=== PATIENT | female | born 1955 | race Caucasian/White ===

== ENCOUNTER 2017-04-13 22:58 | Observation (INO) | payer BC ==
[2017-04-14 00:13] LABS: ABS Basophils 0 10^3/ul (0-0.2); ABS Eosinophils 0.2 10^3/ul (0-0.6); ABS Lymphocytes 0.9 10^3/ul (1.0-4.8); ABS Monocytes 0.7 10^3/ul (0-0.8); ABS Neutrophils 6.2 10^3/ul (1.5-7.7); ABS Nucleated RBC 0 10^3/ul; Eosinophil % 2.2 % (0-6); Hematocrit 40 % (35-47); Hemoglobin 13.2 g/dl (12.0-16.0); Lymphocyte % 11.3 % (25-47); Mean Corpuscular HGB Conc 33 g/dl (31-36); Mean Corpuscular Hemoglobin 29 pg (27-31); Mean Corpuscular Volume 86 fL (80-97); Mean Platelet Volume 7 um3 (7.4-10.4); Nucleated Red Blood Cells % 0.1; Platelet Count 194 10^3/ul (150-450); Red Blood Count 4.64 10^6/ul (4.0-5.4); Red Cell Distribution Width 15 % (10.5-15)
[2017-04-14 00:32] LABS: EGFR Non-African American 71.4 (>60)
[2017-04-14 00:46] LABS: INR 4.15 (0.77-1.02)
[2017-04-14] MEDS ORDERED: Iohexol 350* (CONTRAST) 500 ML MDV IV ONE (03:07)
[2017-04-14] MEDS ORDERED: NS 0.9% 1000 ML* 1,000 ML IV ONE (03:32)
--- NOTE | 2017-04-14 05:04 | ED ---
Andry Brown Thomas, scribed for Lacho Bah on 04/14/17 at 0125 . Neurological HPI - HPI Summary HPI Summary: The patient is a 61 year old female brought by her family members to the emergency department with right-sided weakness that began three hours ago (22: 30 on 04/13/17). She has a history of stroke in 2016. At baseline, she has aphasia. The patient has right-sided weakness at baseline, but the patients family reports that her weakness is worse from baseline. She additionally complains of nasal congestion and a cough. - History of Current Complaint Chief Complaint: EDWeakness Stated Complaint: RT SIDE WEAKNESS/NAUSEA Time Seen by Provider: 04/14/17 00:54 Hx Obtained From: Patient Onset/Duration: Started hours ago - 3, Still Present Timing: Constant Current Severity: Moderate Pain Intensity: 0 Pain Scale Used: 0-10 Numeric Character: Other: - Weakness Aggravating: Nothing Alleviating: Nothing Related Hx: Coumadin - Allergy/Home Medications Allergies/Adverse Reactions: Allergies Allergy/AdvReac Type Severity Reaction Status Date / Time MS Ciprofloxacin Allergy Headache Verified 04/13/17 23:07 PMH/Surg Hx/FS Hx/Imm Hx Cardiovascular History: Denies: Hx Atrial Fibrillation Neurological History: Reports: Hx CVA Infectious Disease History: No Infectious Disease History: Denies: Traveled Outside the [place] in Last 30 Days - Family History Known Family History: Positive: Other - Stroke - Social History Alcohol Use: None Substance Use Type: Reports: None Smoking Status (MU): Never Smoked Tobacco Review of Systems Positive: Nasal Discharge Positive: Cough Neurological: Other - Aphasia, right-wided weakness All Other Systems Reviewed And Are Negative: Yes Physical Exam - Summary Physical Exam Summary: Appearance: Well appearing, no pain distress Skin: warm, dry, reflects adequate perfusion Head/face: normal Eyes: EOMI, ELIAS ENT: normal Neck: supple, non-tender Respiratory: CTA, breath sounds present Cardiovascular: RRR, pulses symmetrical Abdomen: non-tender, soft Bowel: present Musculoskeletal: normal, strength/ROM intact Neuro: sensory motor intact, A&Ox3. She has aphasia. Triage Information Reviewed: Yes Vital Signs On Initial Exam: Initial Vitals Temp Pulse Resp BP Pulse Ox 96.6 F 96 20 119/75 100 04/13/17 23:01 04/13/17 23:01 04/13/17 23:01 04/13/17 23:01 04/13/17 23:01 Vital Signs Reviewed: Yes Diagnostics - Vital Signs Vital Signs Temp Pulse Resp BP Pulse Ox 04/14/17 00:48 88 98 04/14/17 00:46 131/85 04/13/17 23:01 96.6 F 96 20 119/75 100 - Laboratory Lab Results: Lab Results 04/13/17 04/13/17 04/13/17 Range/Units 23:48 23:48 23:48 WBC 8.0 (3.5-10.8) 10^3/ul RBC 4.64 (4.0-5.4) 10^6/ul Hgb 13.2 (12.0-16.0) g/dl Hct 40 (35-47) % MCV 86 (80-97) fL MCH 29 (27-31) pg MCHC 33 (31-36) g/dl RDW 15 (10.5-15) % Plt Count 194 (150-450) 10^3/ul MPV 7 L (7.4-10.4) um3 Neut % (Auto) 76.8 (38-83) % Lymph % (Auto) 11.3 L (25-47) % [place] % (Auto) 9.3 H (1-9) % Eos % (Auto) 2.2 (0-6) % Baso % (Auto) 0.4 (0-2) % Absolute Neuts (auto) 6.2 (1.5-7.7) 10^3/ul Absolute Lymphs (auto) 0.9 L (1.0-4.8) 10^3/ul Absolute Monos (auto) 0.7 (0-0.8) 10^3/ul Absolute Eos (auto) 0.2 (0-0.6) 10^3/ul Absolute Basos (auto) 0 (0-0.2) 10^3/ul Absolute Nucleated RBC 0 10^3/ul Nucleated RBC % 0.1 INR (Anticoag Therapy) 4.15 H (0.77-1.02) APTT 40.5 H (26.0-36.3) seconds Sodium 137 (133-145) mmol/L Potassium 4.0 (3.5-5.0) mmol/L Chloride 101 (101-111) mmol/L Carbon Dioxide 30 (22-32) mmol/L Anion Gap 6 (2-11) mmol/L BUN 17 (6-24) mg/dL Creatinine 0.81 (0.51-0.95) mg/dL Est GFR ( Amer) 91.8 (>60) Est GFR (Non-Af Amer) 71.4 (>60) BUN/Creatinine Ratio 21.0 H (8-20) Glucose 122 H (70-100) mg/dL Calcium 9.6 (8.6-10.3) mg/dL Total Bilirubin 0.30 (0.2-1.0) mg/dL AST 19 (13-39) U/L ALT 16 (7-52) U/L Alkaline Phosphatase 99 (34-104) U/L Troponin I 0.00 (<0.04) ng/mL Total Protein 7.2 (6.4-8.9) g/dL Albumin 4.5 (3.2-5.2) g/dL Globulin 2.7 (2-4) g/dL Albumin/Globulin Ratio 1.7 (1-3) Lipase 61 (11.0-82.0) U/L Result Diagrams: 04/13/17 23:48 04/13/17 23:48 Lab Statement: Any lab studies that have been ordered have been reviewed, and results considered in the medical decision making process. - Radiology CT Brain Xray Interpretation: No Acute Changes - 1. No acute intracranial process 2. Old left middle cerebral artery territory infarct. Dr. Bah has reviewed this report. Radiology Interpretation Completed By: Radiologist NIH Scale - NIH Scale Level of Consciousness: Alert/Keenly Responsive Ask Patient the Month and His/Her Age: Both Correct Ask Pt to Open/Close Eyes and Surgical Supply Assistant/Release Non-Paretic Hand: Both Correctly Best Gaze (Only Horizontal Eye Movement): Normal Visual Field Testing: No Visual Loss Facial Paresis-Pt to Smile & Close Eyes or Grimace Symmetry: Normal/Symmetrical Motor Function - Right Arm: No Drift-Holds 10 Seconds Motor Function - Left Arm: No Drift-Holds 10 Seconds Motor Function - Right Leg: No Drift-Holds 10 Seconds Motor Function - Left Leg: No Drift-Holds 10 Seconds Limb Ataxia-Must be out of Proportion to Weakness Present: Absent Sensory (Use Pinprick to Test Arms/Legs/Trunk/Face): Normal Best Language (Describe Picture, Name Items): Some Loss Dysarthria (Read Several Words): Slurs Some Words Extinction and Inattention: No Abnormality Total Score: 2 Course/Dx - Differential Dx Differential Diagnoses Neuro: Positive: Cerebrovascular Accident, Intracranial Bleed, Transient Ischemic Attack - Diagnoses Provider Diagnoses: TIA (transient ischemic attack) - Physician Notifications Discussed Care Of Patient With: Jory Oliver Time Discussed With Above Provider: 05:00 Instructed by Provider To: Admit As Inpatient - Critical Care Time Critical Care Time: 30-74 min - 30 minutes. Discharge - Discharge Plan Condition: Stable Disposition: ADMITTED TO [facility] Discharge Disposition Comment: By Dr. Oliver Referrals: Lukasz Tom MD [Primary Care Provider] - The documentation as recorded by the Andry lopez Thomas accurately reflects the service I personally performed and the decisions made by me, Lacho Bah.
[2017-04-14] MEDS ORDERED: Ondansetron INJ* 2 MG/ML VIAL IV PRN (05:06)
[2017-04-14] MEDS ORDERED: Acetaminophen TAB* 325 MG PO PRN (05:06)
[2017-04-14] MEDS ORDERED: Aspirin EC Low Dose* 81 MG TAB.EC PO ONE (05:15)
[2017-04-14] MEDS ORDERED: Omeprazole CAP* 20 MG PO SCH ×2 (06:00→21:00)
--- NOTE | 2017-04-14 08:05 | RAD ---
HISTORY: Weakness COMPARISONS: None VIEWS: 4: Frontal dual-energy and lateral views of the chest. FINDINGS: CARDIOMEDIASTINAL SILHOUETTE: The cardiomediastinal silhouette is normal. RICH: The rich are normal. PLEURA: The costophrenic angles are sharp. No pleural abnormalities are noted. LUNG PARENCHYMA: The lungs are clear. ABDOMEN: The upper abdomen is clear. There is no subphrenic gas. BONES AND SOFT TISSUES: There is a mild scoliotic curvature of the spine. OTHER: An implantable cardiac rehabilitation specialist is noted. IMPRESSION: NO ACTIVE CARDIOPULMONARY DISEASE.
--- NOTE | 2017-04-14 08:07 | RAD ---
HISTORY: Right-sided weakness COMPARISONS: None TECHNIQUE: Multiple contiguous axial CT scans were obtained of the head without intravenous contrast. FINDINGS: HEMORRHAGE/INFARCT: There is no hemorrhage or acute infarct. MASSES/SHIFT: There is no mass or shift. EXTRA-AXIAL SPACES: There are no extra-axial fluid collections. SULCI AND VENTRICLES: The sulci and ventricles are normal in size and position for the patient's stated age. CEREBRUM: There is left frontotemporal encephalomalacia consistent with remote infarct. BRAINSTEM: There are no focal parenchymal abnormalities. CEREBELLUM: There are no focal parenchymal abnormalities. VESSELS: The vessels are grossly normal. PARANASAL SINUSES: There is mucosal thickening of the maxillary sinuses and ethmoid air cells. There is an air-fluid level within the left maxillary sinus. ORBITS: The orbits are unremarkable. BONES AND SOFT TISSUE: No bone or soft tissue abnormalities are noted. OTHER: None IMPRESSION: 1. NO ACUTE INTRACRANIAL PATHOLOGY. 2. ENCEPHALOMALACIA CONSISTENT WITH REMOTE LEFT MCA INFARCT. 3. MODERATE SINUS MUCOSAL INFLAMMATORY DISEASE, WITH AN AIR-FLUID LEVEL IN THE LEFT MAXILLARY. IN THE CORRECT CLINICAL SETTING, THIS MAY REPRESENT ACUTE SINUSITIS
--- NOTE | 2017-04-14 08:14 | RAD ---
HISTORY: Stroke, right-sided weakness COMPARISONS: Head CT dated April 14, 2017 TECHNIQUE: Multiple contiguous axial CT scans were obtained of the head and neck after the administration of nonionic intravenous contrast timed to the systemic arterial phase of contrast enhancement. Coronal and sagittal multiplanar reformations are submitted for review. Multiple 3-D maximum intensity projection reconstructions are also submitted for review. FINDINGS: CTA NECK: AORTIC ARCH: The aortic arch is not completely visualized within the [id number] the current examination. There is no proximal stenosis of the cephalic great vessels. RIGHT VERTEBRAL ARTERY: The right vertebral artery appears to terminate in the right posterior inferior cerebellar artery LEFT VERTEBRAL ARTERY: The left vertebral artery is patent along its course, without stenosis. DOMINANCE: The left vertebral artery is dominant. RIGHT COMMON CAROTID ARTERY: The right common carotid artery is patent. The right carotid bifurcation occurs at C5 RIGHT INTERNAL CAROTID ARTERY: There is no right internal carotid artery stenosis by NASCET criteria. RIGHT EXTERNAL CAROTID ARTERY: The right external carotid artery is unremarkable. LEFT COMMON CAROTID ARTERY: The left common carotid artery is patent. The left carotid bifurcation occurs at C4-C5 LEFT INTERNAL CAROTID ARTERY: There is no left internal carotid artery stenosis by NASCET criteria. LEFT EXTERNAL CAROTID ARTERY: The left external carotid artery is unremarkable. VENOUS CIRCULATION: The venous system is unremarkable. SALIVARY GLANDS: The parotid glands, submandibular glands, sublingual glands are normal. NASAL CAVITY/NASOPHARYNX: The nasal cavity and nasopharynx are normal. ORAL CAVITY/OROPHARYNX: The oral cavity is obscured by streak artifact from dental amalgam. The visualized oral cavity and oropharynx are unremarkable. LARYNGEAL APPARATUS/HYPOPHARYNX: The laryngeal apparatus and hypopharynx are normal. UPPER AIRWAY/UPPER ESOPHAGUS: The visualized upper airway and esophagus are normal. LUNG APICES: The lung apices are clear. THYROID GLAND: The thyroid gland is heterogeneous and small LYMPH NODES: There is no lymphadenopathy by size criteria. BONES AND SOFT TISSUES: No bone or soft tissue abnormalities are noted. CTA HEAD: INTRACRANIAL CIRCULATION: There is no aneurysm, vascular malformation, occlusion, or stenosis of the visualized intracranial circulation. The anterior communicating artery complex is clear. Bilateral posterior communicating arteries are identified. VENOUS CIRCULATION: The venous system is unremarkable. PERFUSION: There is no obvious parenchymal perfusion deficit. HEMORRHAGE/INFARCT: There is no hemorrhage or acute infarct. MASSES/SHIFT: There is no mass or shift. EXTRA-AXIAL SPACES: There are no extra-axial fluid collections. SULCI AND VENTRICLES: The sulci and ventricles are normal in size and position for the patient's stated age. CEREBRUM: Again noted is left frontotemporal encephalomalacia.. BRAINSTEM: There are no focal parenchymal abnormalities. CEREBELLUM: There are no focal parenchymal abnormalities. PARANASAL SINUSES: There are-fluid levels within maxillary sinuses bilaterally. The right maxillary sinus is atelectatic. There is opacification and mucosal thickening of ethmoid air cells. ORBITS: The orbits are unremarkable. BONES AND SOFT TISSUE: Degenerative changes are noted OTHER: There is no abnormal enhancement. IMPRESSION: 1. STABLE ENCEPHALOMALACIA CONSISTENT WITH REMOTE LEFT MCA INFARCT. 2. NO INTERNAL CAROTID ARTERY STENOSIS BY NASCET CRITERIA. 3. NO ANEURYSM, VASCULAR MALFORMATION, OCCLUSION, OR STENOSIS OF THE VISUALIZED INTRACRANIAL CIRCULATION. 4. MODERATE SINUS MUCOSAL INFLAMMATORY DISEASE, WITH AIR-FLUID LEVELS IN THE MAXILLARY SINUSES BILATERALLY. IN THE CORRECT CLINICAL SETTING, THIS MAY REPRESENT ACUTE SINUSITIS. 5. THE THYROID GLAND IS SMALL AND HETEROGENEOUS. CPT II Codes: 3100F
[2017-04-14] MEDS ORDERED: BuPROPion XL* 300 MG TAB.XL PO SCH ×2 (09:00→13:00)
[2017-04-14] MEDS ORDERED: LORazepam TAB(*) 1 MG PO ONE (09:32)
[2017-04-14 10:56] LABS: Urine Appearance Clear; Urine Blood Negative (Negative); Urine Color Yellow; Urine Ketones Negative (Negative); Urine Protein Negative (Negative); Urine Specific Gravity 1.046 (1.010-1.030); Urine Urobilinogen Negative (Negative)
--- NOTE | 2017-04-14 11:50 | RAD ---
HISTORY: Right-sided weakness, stroke COMPARISONS: Head CT dated April 14, 2017 TECHNIQUE: The following sequences were obtained of the head: Sagittal T1-weighted images, axial T2-weighted images, axial FLAIR images, axial susceptibility weighted images, axial T1-weighted images. Additionally, axial diffusion-weighted images were obtained with calculated apparent diffusion coefficients. FINDINGS: HEMORRHAGE/INFARCT: There is no hemorrhage or acute infarct. MASSES/SHIFT: There is no mass or shift. EXTRA-AXIAL SPACES/MENINGES: There are no extra-axial fluid collections. SULCI AND VENTRICLES: The sulci and ventricles are normal in size and position for the patient's stated age. CEREBRUM: There is encephalomalacia involving the left frontal lobe, putamen, external capsule, insula, anterior temporal lobe, and to a lesser extent of the anterior parietal lobe. There is high T1 signal within the insula and basal ganglia consistent with dystrophic calcification. BRAINSTEM: There is Wallerian degeneration of the left cerebral peduncle. CEREBELLUM: There are no focal parenchymal abnormalities. The cerebellar tonsils are normal in size and position. SELLA: The sella is normal. PINEAL: The pineal region is clear. CP ANGLE/TEMPORAL BONES: The labyrinthine structures are grossly normal. VESSELS: Normal flow-voids are noted within the visualized vertebral vasculature. DIFFUSION ABNORMALITIES: There are no diffusion abnormalities. PARANASAL SINUSES/MASTOIDS: There is mucosal thickening of the Sinuses and ethmoid air cells. There are-fluid levels within the maxillary sinuses bilaterally. ORBITS: The orbits are unremarkable. BONES AND SOFT TISSUE: No bone or soft tissue abnormalities are noted. OTHER: None IMPRESSION: 1. LEFT MCA TERRITORY ENCEPHALOMALACIA CONSISTENT WITH REMOTE INFARCT. 2. NO RESTRICTED DIFFUSION TO SUGGEST ACUTE INFARCT. 3. MODERATE SINUS MUCOSAL INFLAMMATORY DISEASE, WITH AIR-FLUID LEVELS IN THE MAXILLARY SINUSES BILATERALLY. IN THE CORRECT CLINICAL SETTING, THIS MAY REPRESENT ACUTE SINUSITIS
--- NOTE | 2017-04-14 12:00 | HP ---
CC: Lukasz Tom MD HISTORY AND PHYSICAL: DATE OF ADMISSION: 04/14/17 TIME OF EVALUATION: 0500 PRIMARY CARE PHYSICIAN: Lukasz Tom MD CHIEF COMPLAINT: Right-sided weakness. HISTORY OF PRESENT ILLNESS: This is a 61-year-old female with past medical history of CVA in 2016 with right-sided numbness and expressive aphasia, who presented to the emergency room after having acute onset of a collapse off the couch. The sister, who is a physical therapist here, helps provide additional information. The patient has had URI illness with cough, congestion, no fever. She did vomit twice after dinner today. Then, when she was getting off the couch, she collapsed and it seemed that her right side was more noticeably weak than its baseline. She also was having more issues with her speech and they felt that she was more numb on the right side. Her symptoms have somewhat improved, but still do not feel back to her baseline. When she had stroke in 2016, they thought it was due to PFO and she was started on anticoagulation. She does have residual right-sided numbness with right lower extremity weakness and expressive aphasia. The patient denies any headache, no vision changes, no confusion, and as mentioned, no fever, no more nausea or vomiting, no abdominal pain or urinary symptoms. No diarrhea. Otherwise review of systems negative. In the emergency room, the patient had labs and imaging, was referred to the hospitalist service for further evaluation. PAST MEDICAL HISTORY: 1. History of stroke in 2016 with right-sided residual numbness. 2. Expressive aphasia with mild right-sided facial droop and right leg weakness. 3. The patient has had a loop recorder implanted since 2016. 4. GERD. 5. Hypothyroidism. 6. Depression. 7. History of iron deficiency anemia. 8. History of PFO. MEDICATIONS: The patient is not sure of her entire list, her partner is going to bring in her list this morning. She is on: 1. Coumadin. 2. Prilosec. 3. Restasis. 4. Bupropion. ALLERGIES: CIPROFLOXACIN. FAMILY HISTORY: No history of CVA. SOCIAL HISTORY: The patient lives at home with her partner, J Carlos, who is her healthcare proxy. She is independent of her ADLs. She ambulates independently. No issues with swallowing. No tobacco, alcohol, or illicit drug use. CODE STATUS: Full code. REVIEW OF SYSTEMS: A 14-point review of systems as mentioned in the HPI, otherwise negative. PHYSICAL EXAMINATION GENERAL: No acute distress, resting comfortably with her sister at the bedside. VITAL SIGNS: Temp 96.6, pulse rate 89, respiratory rate 18, oxygen saturation 97% on room air, blood pressure 145/80. HEENT: Head normocephalic. Pupils equal and reactive. Anicteric. Oropharynx : Mucous membranes moist. Some erythema in the posterior oropharynx. NECK: Supple. No lymphadenopathy. RESPIRATORY: Clear to auscultation. No wheezes, rhonchi, or rales. CARDIAC: Regular rate and rhythm. Soft systolic murmur heard throughout. ABDOMEN: Soft, nontender, nondistended. EXTREMITIES: No clubbing, cyanosis, or edema. NEUROLOGIC: Oriented x3. She is noted to have an expressive aphasia, seems to have difficulty with word finding and sometimes it appears that she has some comprehension issues as well. Cranial nerves II through XII intact. She does have a subtle right-sided facial droop, negative pronator drift. She has some subtle weakness in her right lower extremity. DIAGNOSTIC STUDIES/LAB DATA: White count 8, hemoglobin 13.2, hematocrit 40, platelets 194. INR is 4.15. Sodium 137, potassium 4, chloride 101, bicarb 30, BUN 17, creatinine 0.8, glucose 122. Troponin 0. Flu was negative. Radiographic data: CT: Old left frontoparietal infarct involving the left basal ganglia, no evidence of acute findings. EKG shows normal sinus rhythm. 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 No evidence of hemodynamic significant stenosis or dissection. Chest x-ray: No acute findings. ASSESSMENT AND PLAN: This is a 61-year-old female with a past medical history of cerebrovascular accident with right-sided paresthesia, who presents to the emergency room with worsening right-sided weakness and expressive aphasia. Worsening in her right-sided weakness and expressive aphasia. Assessment: The patient is near baseline, but not completely according to the patient and the family member. It is possible she has had another small infarct in the similar region. It also could be her viral illness that has contributed to her worsening of her stroke symptoms. Her lab workup is unremarkable. She is supratherapeutic on her INR. She does have a loop recorder implanted. So, this may preclude her from getting an MRI done. Plan: We will admit her to telemetry. We will give her baby aspirin for now and order PT, speech therapy. We will have Neurology evaluate her and add on a lipid panel. CHRONIC MEDICAL PROBLEMS: 1. We will have pharmacy dose her Coumadin and obtain a med rec. In the meantime, she does note she is on bupropion 300 mg. We will resume that and omeprazole 20 mg. 2. FEN. The patient just passed the bedside swallow, we will place her on regular diet. 3. DVT prophylaxis. The patient scores moderate risk. She is on Coumadin. 4. Code status. Full code. PATIENT TIME: Greater than 50 minutes spent doing the history and physical, more than half the time spent in direct patient contact. [id number]/[facility]PS #: [id number] MTDD
[2017-04-14 12:25] VITALS: BP 133/72
[2017-04-14] MEDS ORDERED: Atorvastatin* 20 MG TAB PO SCH (18:00)
[2017-04-14] MEDS ORDERED: Montelukast Sodium TAB* 10 MG PO SCH (21:00)
[2017-04-14] MEDS ORDERED: Docusate CAP* 100 MG PO SCH (21:00)
--- NOTE | 2017-04-15 05:26 | DS ---
CC: Dr. Tom * DISCHARGE SUMMARY: DATE OF ADMISSION: 04/14/17 DATE OF DISCHARGE: 04/14/17 PRIMARY CARE PROVIDER: Dr. Tom. DISCHARGE DIAGNOSES: 1. Worsening of chronic right-sided weakness due to acute illness. 2. Acute nausea and vomiting less likely due to gastroenteritis, resolved. SECONDARY DIAGNOSES: 1. 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 2. History of hypothyroidism. 3. History of having a loop recorder implanted in 2016. 4. Gastroesophageal reflux disease. 5. History of iron deficiency anemia. MEDICATIONS AT DISCHARGE: Unchanged from admission and include: 1. Coumadin 7.5 mg daily. The patient had been taking 7.5 mg daily and her INR today is 4.15. She prefers to talk with Dr. Tom's service about modifications of her Coumadin doses, which she is going to do after she gets home today. 2. Thyroid total of 45 mg daily. 3. Lipitor 20 mg daily. 4. Vitamin C 500 mg daily. 5. Cyclosporine eye drops 0.05% 1 drop both eyes daily. 6. Colace 100 mg b.i.d. 7. Bupropion XL 300 mg daily. 8. Singulair 10 mg daily. 9. Ferrous sulfate 325 mg daily. 10. Omeprazole 20 mg b.i.d. HOSPITALIZATION COURSE: Kiesha Caballero is a 61-year-old female with history of mixed aphasia and right-sided weakness, who had an acute episode of nausea and vomiting several times on 04/14/17 in the middle of the night and presented to the ED with questionable worsening of her chronic right-sided weakness. It appeared that the patient most likely had worsening of the weakness due to dehydration and acute illness that resolved. By the time of discharge, the patient tolerated regular oral diet. Her brain MRI showed impression, "left MCA territory encephalomalacia consistent with remote infarct. No restricted diffusion to suggest an acute infarct. Moderate sinus mucosal inflammatory disease with air fluid levels in the maxillary sinuses bilaterally. In the clinical setting, this may represent acute sinusitis." Her head CTA on 04/14/17 showed stable encephalomalacia consistent with remote left MCA infarct. No internal carotid artery stenosis. No aneurysm, vascular malformation, occlusion, or stenosis of the visualized intracranial circulation. The thyroid gland was small and heterogenous. The patient's transthoracic echocardiogram is pending at the time of discharge. Please note that this patient's neurologic symptoms resolved very quickly and right after, her nausea and vomiting resolved and also due to the MRI being unremarkable and negative for acute and new stroke, it was presumed that the patient's worsening right-sided weakness was due to the acute illness and that is back to baseline. At this point, the patient did not require further neurology evaluation. She is going to be discharged home. Recommendation to follow up with her primary care provider in approximately 4 to 7 days. PHYSICAL EXAMINATION AT THE TIME OF DISCHARGE: Vital Signs: Blood pressure of 133/72, heart rate of 87 and regular, respiratory rate of 16, oxygen saturation 97% on room air, temperature of 98.3. General: The patient is a very pleasant 61-year- old female, who is in no acute distress. The patient is alert, awake and oriented x3. The patient has a mixed aphasia. HEENT: Head: Atraumatic, normocephalic. Eyes: Pupils are equal, reactive to light and accommodation. Oropharynx clear. Mucosa moist. Neck: Supple. No JVD. No bruits bilaterally. Cardiovascular: Regular rate and rhythm. No murmur. Respiratory : Clear to auscultation bilaterally. Abdomen: Soft and nontender. Bowel sounds present in all 4 quadrants. Extremities: There is no edema. Pulses are +2 bilaterally. No clubbing or cyanosis. Neuro Evaluation: Notable for mixed aphasia. Notable for right-sided facial droop. The patient also has minimal right-sided weakness in right upper and right lower extremity at 4+/5 which is baseline. Please note that this is a short summary of the patient's hospitalization, please refer to further medical records for details. TIME SPENT: Approximately 35 minutes were spent on the patient's discharge. [id number]/[facility] #: [id number] LEIDY
[2017-04-15] MEDS ORDERED: Ascorbic Acid TAB* 500 MG PO SCH (09:00)
[2017-04-15] MEDS ORDERED: Aspirin EC Low Dose* 81 MG TAB.EC PO SCH (09:00)
[2017-04-15] MEDS ORDERED: Thyroid TAB* 30 MG PO SCH (09:00)
[2017-04-15] MEDS ORDERED: Ferrous Sulfate TAB* 325 MG PO SCH (09:00)
[2017-04-15] MEDS ORDERED: Thyroid TAB* 15 MG PO SCH (09:00)
== END 2017-04-14 14:12 | disposition home or self-care (01) ==
LOC: ED 22:58 → MEDTELE 04-14 05:06
PROVIDERS: ADMIT Pediatrics; ATTEND Internal Medicine
DX: R53.1 Weakness (principal); R11.2 Nausea with vomiting, unspecified; K52.9 Noninfective gastroenteritis and colitis, unspecified; K21.9 Gastro-esophageal reflux disease without esophagitis; Z86.2 Personal history of diseases of the blood and blood-forming organs and certain disorders involving the immune mechanism; Z79.01 Long term (current) use of anticoagulants; E03.9 Hypothyroidism, unspecified; I69.320 Aphasia following cerebral infarction; I69.351 Hemiplegia and hemiparesis following cerebral infarction affecting right dominant side
CPT/HCPCS: 36415; 70450; 70496; 70498; 70551; 71046; 80053; 80061; 81003; 83690; 84484; 85025; 85610; 85730; 87502; 93005; 93306; 99284; A9270-GY; G0378; G8978-GP-CH; G8979-GP-CH; G8980-GP-CH; G9162-GN-CK; G9163-GN-CJ; Q9967

== ENCOUNTER 2017-08-19 18:38 | Emergency (ER) | payer BC ==
[2017-08-19 18:53] VITALS: BP 144/91
--- NOTE | 2017-08-19 19:30 | UC ---
Complaint Female HPI - HPI Summary HPI Summary: has been on 2 courses of MAcrobid---and now again after 2 days UTI sx have returned, pain burning and urgency---patient denies nausea, vomiting, fevers, flank pain - History Of Current Complaint Chief Complaint: UCGU Stated Complaint: UTI Time Seen by Provider: 08/19/17 19:19 Hx Obtained From: Patient ?: No Onset/Duration: Sudden Onset, Lasting Hours Timing: Constant Pain Intensity: 8 Pain Scale Used: 0-10 Numeric Character: Burning Aggravating Factor(s): Urination Alleviating Factor(s): Nothing - Allergies/Home Medications Allergies/Adverse Reactions: Allergies Allergy/AdvReac Type Severity Reaction Status Date / Time ciprofloxacin Allergy Headache Verified 08/19/17 18:54 Sulfa (Sulfonamide Allergy Rash And Verified 08/19/17 18:58 Antibiotics) Itching PMH/Surg Hx/FS Hx/Imm Hx Previously Healthy: No Endocrine History: Hypothyroidism, Dyslipidemia Cardiovascular History: Hypertension GI/ History: Gastroesophageal Reflux Neurological History: CVA Psychological History: Depression - Surgical History Surgical History: Yes Surgery Procedure, Year, and Place: bilateral rotator cuff repair; uterine ablation, LOOP RECORDER, TONSILS - Family History Known Family History: Positive: Other - Stroke - Social History Occupation: Disabled Lives: With Family Alcohol Use: None Substance Use Type: None Smoking Status (MU): Never Smoked Tobacco Have You Smoked in the Last Year: No Review of Systems Constitutional: Negative Skin: Negative Eyes: Negative ENT: Negative Respiratory: Negative Cardiovascular: Negative Gastrointestinal: Negative Genitourinary: Dysuria, Frequency, Urgency Motor: Negative Neurovascular: Negative Musculoskeletal: Negative Neurological: Negative Psychological: Negative Is Patient Immunocompromised?: No All Other Systems Reviewed And Are Negative: Yes Physical Exam Triage Information Reviewed: Yes Appearance: Well-Appearing, No Pain Distress, Well-Nourished Vital Signs: Initial Vital Signs Temp 98.4 F 08/19/17 18:47 Pulse 87 08/19/17 18:47 Resp 14 08/19/17 18:47 BP 144/91 08/19/17 18:47 Pulse Ox 98 08/19/17 18:47 Vital Signs Reviewed: Yes Eye Exam: Normal Eyes: Positive: Conjunctiva Clear ENT Exam: Normal ENT: Positive: Normal ENT inspection, Hearing grossly normal, Pharynx normal. Negative: Trismus, Muffled voice, Hoarse voice Dental Exam: Normal Neck exam: Normal Neck: Positive: Supple, Nontender Respiratory Exam: Normal Respiratory: Positive: Chest non-tender, No respiratory distress, No accessory muscle use Cardiovascular Exam: Normal Cardiovascular: Positive: RRR, Pulses Normal, Brisk Capillary Refill Abdominal Exam: Normal Abdomen Description: Positive: Nontender, No Organomegaly, Soft. Negative: CVA Tenderness (R), CVA Tenderness (L), Distended, McBurney's Point Tenderness, Peritoneal Signs, Pulsatile Mass Bowel Sounds: Positive: Present Musculoskeletal Exam: Normal Musculoskeletal: Positive: Strength Intact, ROM Intact, No Edema Neurological Exam: Normal Neurological: Positive: Alert, Muscle Tone Normal Psychological Exam: Normal Skin Exam: Normal Diagnostics - Laboratory Diagnostic Studies Completed/Ordered: + leukoesterace, blood and protien Complaint Female Dx - Course Course Of Treatment: increase fluid (do include cranberry juice), culture urine , keflex, macrobid---patient and sister understand the need for addition INR testing and will contact pcp - Differential Dx/Diagnosis Provider Diagnoses: UTI Discharge - Sign-Out/Discharge Documenting (check all that apply): Discharge/Admit/Transfer - Discharge Plan Condition: Stable Disposition: HOME Prescriptions: Cephalexin CAP* [Keflex CAP*] 500 mg PO BID #13 cap Phenazopyridine TAB* [Pyridium 100 mg TAB*] 100 mg PO TID PRN #9 tab PRN Reason: urinary pain and burning Patient Education Materials: Phenazopyridine (By mouth), Urinary Tract Infection in Women (DC), Hypertension (ED) Referrals: Lukasz Tom MD [Primary Care Provider] - 1 Day - Billing Disposition and Condition Condition: STABLE Disposition: Home
[2017-08-19] MEDS ORDERED: Phenazopyridine TAB* 100 MG PO ONE (19:33)
[2017-08-19] MEDS ORDERED: Cephalexin CAP* 500 MG PO ONE (19:34)
--- NOTE | 2017-08-22 20:34 | UC ---
- Progress Note Progress Note: 08/22/2017 Urine culture: +E.Coli. Pt Rx Keflex PO No change Lexie Ratliff PA-C Discharge - Sign-Out/Discharge Documenting (check all that apply): Discharge/Admit/Transfer - Discharge Plan Condition: Stable Disposition: HOME Prescriptions: Cephalexin CAP* [Keflex CAP*] 500 mg PO BID #13 cap Phenazopyridine TAB* [Pyridium 100 mg TAB*] 100 mg PO TID PRN #9 tab PRN Reason: urinary pain and burning Patient Education Materials: Phenazopyridine (By mouth), Urinary Tract Infection in Women (DC), Hypertension (ED) Referrals: Lukasz Tom MD [Primary Care Provider] - 1 Day - Billing Disposition and Condition Condition: STABLE Disposition: Home
== END 2017-08-19 20:05 | disposition home or self-care (01) ==
LOC: UCEAST 18:38
DX: N39.0 Urinary tract infection, site not specified (principal); B96.20 Unspecified Escherichia coli [E. coli] as the cause of diseases classified elsewhere; Z87.440 Personal history of urinary (tract) infections; E03.9 Hypothyroidism, unspecified; E78.5 Hyperlipidemia, unspecified; I10 Essential (primary) hypertension; K21.9 Gastro-esophageal reflux disease without esophagitis; Z86.73 Personal history of transient ischemic attack (TIA), and cerebral infarction without residual deficits; F32.9 Major depressive disorder, single episode, unspecified; Z88.1 Allergy status to other antibiotic agents; Z88.2 Allergy status to sulfonamides; Z82.3 Family history of stroke
CPT/HCPCS: 81003; 87077; 87086; 87186; 99212; A9270-GY; G0463

== ENCOUNTER 2018-01-03 05:57 | Observation (INO) | payer BC ==
--- NOTE | 2017-12-31 18:28 | HP ---
CC: Dr. Lukasz Tom; Dr. Akil Hollingsworth * ADMITTING HISTORY AND PHYSICAL: DATE OF ADMISSION: 01/03/18 ADMITTING DIAGNOSES: Left renal calculus. PLANNED PROCEDURE: Left stent insertion and shock-wave lithotripsy of left renal calculus. SURGEON: Dr. Avitia. HISTORY OF PRESENT ILLNESS: Kiesha Caballero is a 62-year-old lady who was evaluated and noted to have an 1-cm calculus in the upper pole of the left kidney. She is being brought in for stent insertion and shock-wave lithotripsy after thorough discussion of procedure and possible risks including bleeding, infection, possible injury to the kidney, and incomplete fragmentation. PAST MEDICAL HISTORY: Significant for ischemic stroke and patent foramen ovale. MEDICATIONS: On admission: 1. Atorvastatin 20 mg daily. 2. Singulair 10 mg daily. 3. Omeprazole 40 mg daily. 4. Coumadin, which is currently on hold. 5. Parker Thyroid 90 mg daily. 6. Bupropion 300 mg daily. 7. Stool softener. ALLERGIES: CIPRO and SULFA. PHYSICAL EXAMINATION GENERAL: Reveals a pleasant healthy-appearing middle-aged lady. VITAL SIGNS: Blood pressure is 132/88, pulse 87 per minute, oxygen saturation 98% on room air. LUNGS: Clear bilaterally. CARDIOVASCULAR: Regular rate and rhythm. No murmurs. ABDOMEN: Soft with mild left flank tenderness. IMPRESSION: The patient had been evaluated kindly by Dr. Hollingsworth and the plan is for her to be off the Coumadin for 5 to 6 days prior to the lithotripsy and then I will see her in the office and do an ultrasound to make sure there is no perinephric hematoma before resuming the anticoagulation. I have discussed the potential risk of bleeding around the kidney, which in an anticoagulated patient could be much more problematic and had a detailed discussion regarding this risk with both Kiesha and her paint prep technician, J Carlos. PLAN: Left stent insertion and shock-wave lithotripsy of left renal calculus. [id number]/CPS #: [id number] MTDD
[2018-01-03] MEDS ORDERED: Sodium Citrate/Citric Acid* 15 ML UDC PO ONE (06:00)
[2018-01-03] MEDS ORDERED: Buffered Lidocaine 0.9% SYRIN* 5 ML/SYR SYRINGE INTRADERM ONE (06:00)
[2018-01-03] MEDS ORDERED: cefTRIAXone(*) 2 GM ADDV.VIAL IVPB ONE (06:55)
[2018-01-03] MEDS ORDERED: Sodium Citrate/Citric Acid* 15 ML UDC ONE (06:55)
[2018-01-03] MEDS ORDERED: Naloxone* 0.4 MG/ML 1 ML VIAL IV PRN (08:03)
--- NOTE | 2018-01-03 08:22 | RAD ---
INDICATION: History of left-sided shockwave lithotripsy COMPARISON: Similar KUB September 21, 2017 TECHNIQUE: 2 views the abdomen were obtained. FINDINGS: Overlying the left lower pole collecting system is an amorphous hyperdense focus measuring 9 mm that corresponds to a similar finding on the previous KUB. There are no large calcifications overlying the right collecting system or either ureter. Round calcifications in the pelvis are consistent with phleboliths. There are multilevel degenerative changes of the lumbar spine including loss of intervertebral disc height at approximately 17 degrees of dextroconvex angulation at L3/L4. IMPRESSION: ABOVE.
[2018-01-03] MEDS ORDERED: Iohexol 180 (CONTRAST) 10 ML SDV IV ONE (08:37)
[2018-01-03] MEDS ORDERED: Lidocaine 2% PF * 5 ML VIAL ONE (08:47)
[2018-01-03] MEDS ORDERED: Propofol* 10 MG/ML 20 ML BTL IV PUSH ONE (08:47)
[2018-01-03] MEDS ORDERED: fentaNYL* 50 MCG/ML 2 ML VIAL (100 MCG VIAL) ONE (08:50)
[2018-01-03] MEDS ORDERED: Furosemide IV* 10 MG/ML 2 ML VIAL (20 MG) ONE (10:00)
[2018-01-03] MEDS ORDERED: Furosemide IV* 10 MG/ML 2 ML VIAL (20 MG) IV ONE (10:00)
[2018-01-03] MEDS ORDERED: Acetaminophen TAB* 325 MG PO PRN (11:42)
[2018-01-03] MEDS ORDERED: Ondansetron INJ* 2 MG/ML VIAL IV PRN (11:42)
[2018-01-03] MEDS ORDERED: Morphine INJ* 4 MG/ML 1 ML SYRINGE (NEW SYRINGE VERSION) IV PRN (11:42)
[2018-01-03] MEDS ORDERED: NS 0.9% 1000 ML* 1,000 ML IV ONE (11:43)
[2018-01-03] MEDS ORDERED: NS 0.9% 1000 ML* 1,000 ML IV SCH (11:45)
[2018-01-03 12:40] LABS: ABS Basophils 0 10^3/ul (0-0.2); ABS Eosinophils 0.2 10^3/ul (0-0.6); ABS Lymphocytes 0.8 10^3/ul (1.0-4.8); ABS Monocytes 0.1 10^3/ul (0-0.8); ABS Nucleated RBC 0 10^3/ul; Eosinophil % 4.1 % (0-6); Hematocrit 37 % (35-47); Hemoglobin 12.5 g/dl (12.0-16.0); Lymphocyte % 18.5 % (25-47); Mean Corpuscular HGB Conc 34 g/dl (31-36); Mean Corpuscular Hemoglobin 29 pg (27-31); Mean Corpuscular Volume 85 fL (80-97); Mean Platelet Volume 7.1 um3 (7.4-10.4); Nucleated Red Blood Cells % 0; Platelet Count 186 10^3/ul (150-450); Red Blood Count 4.34 10^6/ul (4.00-5.40); Red Cell Distribution Width 14 % (10.5-15); White Blood Count 4.1 10^3/ul (3.5-10.8)
[2018-01-03 13:03] LABS: EGFR Non-African American 81.6 (>60)
--- NOTE | 2018-01-03 15:28 | HP ---
CC: Dr. Tom; Dr. Akil Hollingsworth * HISTORY AND PHYSICAL: DATE OF ADMISSION: 01/03/18 TIME OF EVALUATION: 11:30 a.m. PRIMARY CARE PROVIDER: Dr. Tom, RESTAURANT HOST/HOSTESS: Dr. Akil Hollingsworth. UROLOGIST: Dr. Avitia. CHIEF COMPLAINT: "She passed out," as per nurse. HISTORY OF PRESENT ILLNESS: Ms. Caballero is a 62-year-old female with past medical history of left MCA, CVA in 2016 status post loop recorder implantation , PFO, GERD, hypothyroidism, depression, iron deficiency anemia, nephrolithiasis who presented to [facility] for an elective left ureteral stent insertion and shockwave lithotripsy. The patient was seen by Dr. Avitia as outpatient and he had performed evaluation for a 1 cm calculus in the upper pole of the left kidney. The patient underwent a left stent insertion and shockwave lithotripsy of this left renal calculus and the surgery went well. As per nursing description around 11:20 the patient was in the toilet with sister, had voided successfully and when ambulating to the door she became dizzy and was sat on the commode for safety. When her nurse arrived to the bathroom the patient was unresponsive and listed to the right. The patient was described as pale and unable to speak. A clinical assessment team was called and I evaluated the patient in the PACU. But at time I had arrived she was responsive again and had no neurological deficits. Her blood pressure was 107/55, glucose was 109. At that point, the impression was the patient likely had a vasovagal episode and decision was made to admit her, so she could be observed overnight. PAST MEDICAL HISTORY: 1. Left MCA CVA in October 2015. Of note, the patient was taking progesterone pills and estrogen cream at that time. She was found to have a PFO/atrial septal aneurysm and has been on warfarin since. She has an implantable loop recorder to evaluate for atrial fibrillation/flutter. 2. GERD. 3. Hypothyroidism. 4. Depression. 5. Iron deficiency anemia. 6. Nephrolithiasis. MEDICATION LIST: 1. Vitamin C 500 mg p.o. daily. 2. Atorvastatin 20 mg p.o. daily. 3. Bupropion XL 300 mg p.o. daily. 4. Cyclosporin 0.05% 1 drop to both eyes b.i.d. 5. Colace 100 mg p.o. b.i.d. 6. Ferrous sulfate 250 mg p.o. daily. 7. Montelukast 10 mg p.o. at bedtime. 8. Omeprazole 40 mg p.o. q.a.m. 9. Thyroid 90 mg p.o. q. daily. 10. Warfarin 7.5 mg p.o. daily. ALLERGIES: With CIPROFLOXACIN, the patient had a headache, with SULFA she had rash and itching and with TELLES she has GI upset. FAMILY HISTORY: Reviewed and noncontributory. No family history of CVA. SOCIAL HISTORY: The patient is a retired critical care nurse. She denied history of tobacco, alcohol, or drug use. Surrogate decision maker is J Carlos Bhatia, phone number is [phone] (her partner). REVIEW OF SYSTEMS: A 14-point review of systems was performed and all the pertinent negatives are in the HPI. PHYSICAL EXAMINATION GENERAL: The patient is a pleasant lady lying in bed in no acute distress. VITAL SIGNS: Temperature 97.2, heart rate is 88, respiratory rate is 18, oxygen saturation is 100% on 3 L nasal cannula, blood pressure is 133/86. HEENT: Pupils are equal. Moist mucous membranes. Face is symmetric. CHEST: Breath sounds present bilaterally with no added sounds. CVS: Normal S1, S2. Regular rate and rhythm. ABDOMEN: Soft, bowel sounds are present. EXTREMITIES: No edema. NEUROLOGIC: She is alert and oriented x3. Able to move all 4 extremities. Speech is clear. LABORATORY/IMAGING DATA: The patient had an EKG done during the clinical assessment team that showed sinus rhythm at 83 beats per minute with no ST-T changes. No significant change when compared to her prior EKG from March 2017. ASSESSMENT AND PLAN: Ms. Caballero is a 62-year-old female with a past medical history of cerebrovascular accident, gastroesophageal reflux disease, hypothyroidism, depression, iron deficiency anemia who presented to [facility] for an elective left ureteral stent placement with lithotripsy and developed a syncopal episode after the procedure. 1. Syncopal episode. I suspect this was likely vasovagal in the setting of surgical procedure/voiding, but as the patient has a loop recorder we interrogated looking for any other signs of arrhythmia. She will be admitted to the surgical floor with telemetry. I am going to continue on IV hydration. 2. Prior history of cerebrovascular accident. When the patient had this syncopal episode she was described as having right-sided weakness, but at the time of my evaluation those symptoms had already resolved. Suspect exacerbation of her prior deficits due to hypotension. We are going to monitor her with neurological checks. 3. Regarding her anticoagulation from reading Dr. Hollingsworth's records the patient was never found to be in atrial fibrillation, but she has been on anticoagulation since her cerebrovascular accident. As, she is at a high risk for bleeding due to her lithotripsy the plan was to hold her warfarin as per Dr. Avitia. She will follow up as outpatient and if there is no sign of hematoma then should be restarted on warfarin as outpatient. 4. Hypothyroidism. We will continue her thyroid hormone supplementation. 5. DVT prophylaxis. The patient has a score of 2 on the DVT prophylaxis assessment guide and she will be started on SCDs. 6. The patient's elects to be a do not resuscitate and a MOLST form was signed. TIME SPENT: Approximately 50 minutes was spent with patient interview, medical records review, physical examination to complete this admission, more than half of this time was spent [id number] with the patient and coordination of care. [id number]/[facility] #: [id number] LEIDY
[2018-01-03] MEDS ORDERED: Atorvastatin* 20 MG TAB PO SCH (18:00)
[2018-01-03] MEDS ORDERED: Montelukast Sodium TAB* 10 MG PO SCH (21:00)
[2018-01-03] MEDS: Docusate CAP* 100 MG PO SCH (21:44)
[2018-01-03] MEDS: PTO: Cyclosporine 0.05% OPHTH (NF) 0.4 ML VIAL BOTH EYES SCH (22:37)
[2018-01-04] MEDS: oxyCODONE/Acetamin 5/325 MG* TAB PO PRN ×2 (04:19→08:49)
--- NOTE | 2018-01-04 04:33 | OP ---
CC: Dr. Lukasz Tom; Dr. Akil Hollingsworth * DATE OF OPERATION: 01/03/18 - ROOM #342 DATE OF : 51 SURGEON: Dr. Avitia. ANESTHESIOLOGIST: Dr. Hopson. ANESTHESIA: General. PRE-OP DIAGNOSIS: Left renal calculus. POST-OP DIAGNOSIS: Left renal calculus. OPERATIVE PROCEDURES: 1. Cystoscopy, left retrograde, left stent insertion. 2. Shock wave lithotripsy of left renal calculus. COMPLICATIONS: None. POSTOPERATIVE CONDITION: Stable. STENT USED: 7-Anguillan stent, left ureter. INDICATIONS: Kiesha Caballero is a 62-year-old lady who was evaluated and noted to have a calculus in the left kidney. She desires treatment of the same and is now being brought in for shock wave lithotripsy. After a thorough discussion of the procedure and possible risks including bleeding, infection, incomplete fragmentation, and possible injury to the kidney. DESCRIPTION OF PROCEDURE: After induction of general anesthesia, patient was placed in dorsal lithotomy position. Sequential compression devices were in place and functioning. Initial cystoscopy revealed a normal-appearing bladder. A left retrograde pyelogram showed a calculus in the area of the left renal pelvis. The 7- Anguillan stent was introduced and positioned under fluoroscopy with good proximal and distal positioning obtained. Next, the patient was placed on the lithotripsy table in supine position. The calculus was identified in the left kidney and shock wave lithotripsy was commenced at a rate of 60 shocks per minute. After the initial 300 shocks, there was a pause in the lithotripsy for several minutes in an effort to minimize any potential trauma to the kidney. Lithotripsy was then resumed and a total of 1200 shocks were administered. Patient tolerated the procedure satisfactorily and was transferred back to the recovery area in stable condition. [id number]/CPS #: [id number] [facility]
[2018-01-04] MEDS ORDERED: Omeprazole CAP* 20 MG PO SCH (07:30)
--- NOTE | 2018-01-04 08:12 | RAD ---
Indication: Stent placement. Flat plate of the abdomen demonstrates left ureteral stent placement. Stool is present throughout colon. No dilated loops of bowel are noted. IMPRESSION: Left ureteral stent placement. No free air or obstruction is noted. R1
[2018-01-04] MEDS: Docusate CAP* 100 MG PO SCH (08:49)
[2018-01-04] MEDS ORDERED: Ascorbic Acid TAB* 500 MG PO SCH (09:00)
[2018-01-04] MEDS ORDERED: Ferrous Sulfate TAB* 325 MG PO SCH (09:00)
[2018-01-04] MEDS ORDERED: BuPROPion XL* 300 MG TAB.XL PO SCH (09:00)
[2018-01-04] MEDS ORDERED: Thyroid TAB* 30 MG PO SCH (09:00)
[2018-01-04 09:25] VITALS: BP 133/76
[2018-01-04] MEDS: PTO: Cyclosporine 0.05% OPHTH (NF) 0.4 ML VIAL BOTH EYES SCH (09:31)
--- NOTE | 2018-01-05 09:12 | DS ---
CC: Dr. Tom; Akil Hollingsworth DO; Dr. Avitia DISCHARGE SUMMARY: DATE OF ADMISSION: 01/03/18 DATE OF DISCHARGE: 01/04/18 PRIMARY CARE PROVIDER: Dr. Tom. BOW REHAIRER: Akil Hollingsworth DO UROLOGIST: Dr. Avitia. DISCHARGE DIAGNOSIS: Syncope, likely vasovagal secondary to pain and operative procedure. SECONDARY DIAGNOSES: 1. Left MCA cerebrovascular accident. 2. Gastroesophageal reflux disease. 3. Hypothyroidism. 4. Depression. 5. Iron deficiency anemia. 6. Nephrolithiasis status post cystoscopy with left ureteral stent placement and shockwave lithotrip sy. MEDICATION LIST: 1. Vitamin C 500 mg p.o. daily. 2. Atorvastatin 20 mg p.o. daily. 3. Bupropion XL 300 mg p.o. daily. 4. Cyclosporin 0.05% 1 drop to both eyes b.i.d. 5. Colace 100 mg p.o. b.i.d. 6. Ferrous sulfate 250 mg p.o. daily. 7. Montelukast 10 mg p.o. at bedtime. 8. Omeprazole 40 mg p.o. q.a.m. 9. Thyroid 90 mg p.o. daily. Warfarin is on hold until reevaluation by Dr. Avitia. HOSPITAL COURSE: Ms. Caballero is a 62-year-old lady with a past medical history as stated above wh o was admitted electively for a urological procedure as described above and a syncopal episode after the procedure, felt to be vasovagal in nature. For more details about her presentation, I refer you t o her history and physical. The patient had no significant arrhythmias on telemetry, just short bouts of sinus tachycardia. Her event monitor was interrogated and there were no significant arrhythmias. Orthostatic vital signs we re negative after IV hydration. The impression is that she had a vasovagal episode secondary to pain and micturition. She felt back to normal on the day of discharge and the plan is to continue her usual medications exc ept her warfarin that she will need to follow up with Dr. Avitia to be cleared to take the medication again due to the risk of bleeding with her lithotripsy. The patient has no complaints and is stable for discharge. PHYSICAL EXAMINATION: Vital Signs: Temperature 98.6, heart rate is 82, respiratory rate is 16, oxyg en saturation 99% on room air, blood pressure is 129/74. General: The patient is a pleasant lady, kayley soria in bed, in no acute distress. CVS: Normal S1, S2 with regular rate and rhythm. Chest: Breath sounds bilaterally with no added sounds. Abdomen: Soft. Bowel sounds present. Extremities: No prasad ma. Neuro: She is alert and oriented x3, has moderate expressive aphasia and she is able to move al l 4 extremities. DIET: Regular diet. ACTIVITY: As tolerated. DISPOSITION: To home. STATUS WHILE IN THE HOSPITAL: Observation. Please keep in mind this is a summarized version of this patient's hospital stay. If you need more in formation, please feel free to call me at [phone] or please obtain full medical records. TIME SPENT: Approximately 40 minutes were spent to complete this discharge. [id number]/CPS #: [id number]
== END 2018-01-04 13:00 | disposition home or self-care (01) ==
LOC: OR 05:57 → SSU 13:01
PROVIDERS: ADMIT Urology; ATTEND Urology
DX: N20.0 Calculus of kidney (principal); Z86.73 Personal history of transient ischemic attack (TIA), and cerebral infarction without residual deficits; K21.9 Gastro-esophageal reflux disease without esophagitis; E03.9 Hypothyroidism, unspecified; F32.9 Major depressive disorder, single episode, unspecified; D50.9 Iron deficiency anemia, unspecified
CPT/HCPCS: 36415; 74018; 80053; 84484; 85025; 85610; 93005; A9270-GY; C1876; G0378; J0696; J1940; J2704; J3010